=== PATIENT | female | born 1940 | race Caucasian/White ===

== ENCOUNTER 2021-07-12 01:30 | Inpatient (IN) | payer OTHER ==
[~2021-07-12] VITALS: Ht 165.1 cm; Wt 76.9 kg
[2021-07-12 03:06] LABS: HEMATOCRIT. 40.3 % (36.0-48.0); HEMOGLOBIN. 13.2 g/dL (12.0-16.0); MEAN CORPUSCULAR HEMOGLOBIN 31.2 pg (28.0-32.0); MEAN PLATELET VOLUME 7.7 fl (7.4-10.4); PLATELET 221 x1000/uL (130-400); RED BLOOD CELL COUNT 4.24 mill/uL (4.2-5.4); RED CELL DISTRIBUTION WIDTH 14.3 % (11.6-14.6)
[2021-07-12 03:20] LABS: CHLORIDE 101 mEq/L (98-107)
[2021-07-12 03:25] LABS: ETHANOL BLOOD < 10 mg/dL
[2021-07-12 05:09] LABS: CLARITY URINE CLEAR (CLEAR); COLOR URINE YELLOW (YELLOW); KETONES URINE 2+ (NEGATIVE); LEUKOCYTE ESTERASE URINE NEGATIVE (NEGATIVE); NITRITE URINE NEGATIVE (NEGATIVE); OCCULT BLOOD URINE TRACE (NEGATIVE); PROTEIN URINE 1+ (NEGATIVE); SPECIFIC GRAVITY URINE 1.015 (1.005-1.030); UROBILINOGEN URINE 0.2 E.U./dL (0.2-1.0)
[2021-07-12 05:28] LABS: PLATELET ESTIMATE NORMAL
[2021-07-12] MEDS ORDERED: ACETAMINOPHEN 325MG TABLET PO ONE (05:45)
[2021-07-12] MEDS ORDERED: LORAZEPAM 0.5MG TABLET PO PRN (10:30)
[2021-07-12] MEDS ORDERED: CLONIDINE 0.1MG TABLET PO PRN (10:30)
[2021-07-12] MEDS ORDERED: GUAIFENESIN 200MG/10ML SUGAR FREE UDC PO PRN (10:30)
[2021-07-12] MEDS ORDERED: DIPHENHYDRAMINE 50MG/ML VIAL IV PRN (10:30)
[2021-07-12] MEDS ORDERED: CEFTRIAXONE 1 G PREMIX 50 ML IV SCH (10:30)
[2021-07-12] MEDS ORDERED: NA PHOS,M-B/NA PHOS,DI-BA ENEMA 118ML PR PRN (10:30)
[2021-07-12] MEDS ORDERED: IPRATROPIUM/ALBUTEROL 0.5-3(2.5)MG/3ML NEB NEB PRN (10:30)
[2021-07-12] MEDS ORDERED: ONDANSETRON HCL 4MG/2ML INJ IV PRN (10:30)
[2021-07-12] MEDS ORDERED: MAGNESIUM/ALUMINUM HYDROXIDE/SIMETHICONE 30ML UDC PO PRN (10:30)
[2021-07-12] MEDS ORDERED: ACETAMINOPHEN 650MG SUPP PR PRN (10:30)
[2021-07-12] MEDS ORDERED: DOCUSATE SODIUM 100MG CAPSULE PO PRN (10:30)
[2021-07-12] MEDS ORDERED: ACETAMINOPHEN 325MG TABLET PO PRN (10:30)
[2021-07-12] MEDS ORDERED: POTASSIUM CHLORIDE INJ 40 MEQ in DEXT 5% WATER 250 ML IV NR (11:15)
[2021-07-12] MEDS: SODIUM CHLORIDE 0.45% 1,000 ML IV SCH (11:22)
[2021-07-12 11:55] LABS: PROTHROMBIN TIME 10.7 sec (9.6-11.0)
[2021-07-12] MEDS ORDERED: LEVOFLOXACIN 500MG PREMIX 100ML IV ONE (15:00)
[2021-07-12 15:09] LABS: *AMPHETAMINES SCREEN URINE NEGATIVE (NEGATIVE); *BARBITURATES SCREEN URINE NEGATIVE (NEGATIVE); *BENZODIAZEPINES SCREEN URINE NEGATIVE (NEGATIVE); *COCAINE SCREEN URINE NEGATIVE (NEGATIVE); CANNABINOID URINE SCREEN NEGATIVE (NEGATIVE); METHADONE URINE SCREEN NEGATIVE (NEGATIVE); OPIATES URINE SCREEN NEGATIVE (NEGATIVE); PHENCYCLIDINE URINE SCREEN NEGATIVE (NEGATIVE)
[2021-07-12] MEDS: LEVETIRACETAM 500MG PREMIX 100 ML IV SCH ×2 (16:07→21:18)
[2021-07-12] MEDS: ENOXAPARIN 30MG/0.3ML SYR SUBCUT SCH (16:46)
[2021-07-12] MEDS ORDERED: NALOXONE HCL 0.4MG/ML VIAL IV PRN (17:00)
[2021-07-12] MEDS: FAMOTIDINE 20MG TABLET PO SCH (21:18)
[2021-07-13 05:00] LABS: BASOPHILS % 0.6 % (0.0-2.0); EOSINOPHILS % 0.6 % (0.0-5.0); HEMATOCRIT. 38.2 % (36.0-48.0); HEMOGLOBIN. 12.6 g/dL (12.0-16.0); LYMPHOCYTES % 16.6 % (20.0-50.0); MEAN CORPUSCULAR HEMOGLOBIN 30.8 pg (28.0-32.0); MEAN CORPUSCULAR VOLUME 93.1 fL (81.0-99.0); MEAN PLATELET VOLUME 7.6 fl (7.4-10.4); MONOCYTES % 9.2 % (2.0-8.0); PLATELET 241 x1000/uL (130-400); RED BLOOD CELL COUNT 4.11 mill/uL (4.2-5.4); RED CELL DISTRIBUTION WIDTH 14.4 % (11.6-14.6)
[2021-07-13 05:21] LABS: CHLORIDE 102 mEq/L (98-107)
[2021-07-13 05:33] LABS: T4 FREE 1.03 ng/dL (0.76-1.46)
[2021-07-13] MEDS: SODIUM CHLORIDE 0.45% 1,000 ML IV SCH (07:09)
[2021-07-13 09:20] VITALS: BP 102/64
[2021-07-13] MEDS ORDERED: LEVOFLOXACIN 250MG PREMIX 50 ML IV SCH ×2 (11:30→15:00)
[2021-07-13 12:00] VITALS: BP 143/53
[2021-07-13] MEDS: ASPIRIN 81MG EC TABLET PO SCH (13:12)
[2021-07-13] MEDS: LEVETIRACETAM 500MG PREMIX 100 ML IV SCH ×2 (13:12→21:33)
[2021-07-13 13:43] VITALS: BP 102/64
[2021-07-13] MEDS: LEVOFLOXACIN 250MG PREMIX 50 ML IV SCH (14:28)
[2021-07-13] MEDS ORDERED: METO25TA3 PO (14:51)
[2021-07-13] MEDS ORDERED: LEVO25TA7 PO (14:51)
[2021-07-13] MEDS ORDERED: HYDR100T26 PO (14:51)
[2021-07-13] MEDS ORDERED: DIPH25CA83 PO (14:51)
[2021-07-13] MEDS ORDERED: TAMS-11 PO (14:51)
[2021-07-13] MEDS ORDERED: MEMA10TA2 PO (14:51)
[2021-07-13] MEDS ORDERED: DONE10TA36 PO (14:51)
[2021-07-13 16:00] VITALS: BP 133/68
[2021-07-13] MEDS: ENOXAPARIN 30MG/0.3ML SYR SUBCUT SCH (17:11)
[2021-07-13 20:00] VITALS: BP 118/46
[2021-07-13] MEDS: FAMOTIDINE 20MG TABLET PO SCH (20:56)
[2021-07-14] VITALS: BP 114/53
[2021-07-14 04:00] VITALS: BP 136/49
[2021-07-14] MEDS: LEVOTHYROXINE SODIUM 25MCG TABLET PO SCH (06:16)
[2021-07-14 08:00] VITALS: BP 126/44
[2021-07-14] MEDS: ASPIRIN 81MG EC TABLET PO SCH (08:34)
[2021-07-14] MEDS: LEVETIRACETAM 500MG PREMIX 100 ML IV SCH ×2 (08:34→21:47)
[2021-07-14] MEDS: HYDROCODONE/ACETAMINOPHEN 5/325MG TABLET PO PRN ×3 (11:06→22:15)
[2021-07-14 12:00] VITALS: BP 110/56
[2021-07-14 16:00] VITALS: BP 120/68
[2021-07-14] MEDS: LEVOFLOXACIN 250MG PREMIX 50 ML IV SCH (16:57)
[2021-07-14] MEDS: ENOXAPARIN 30MG/0.3ML SYR SUBCUT SCH (16:57)
[2021-07-14] MEDS: SODIUM CHLORIDE 0.45% 1,000 ML IV SCH ×2 (16:58→21:48)
[2021-07-14 20:00] VITALS: BP 109/52
[2021-07-14] MEDS: FAMOTIDINE 20MG TABLET PO SCH (21:47)
[2021-07-15] VITALS: BP 116/48
[2021-07-15 04:00] VITALS: BP 133/49
[2021-07-15] MEDS: LEVOTHYROXINE SODIUM 25MCG TABLET PO SCH (06:31)
[2021-07-15] MEDS: SODIUM CHLORIDE 0.45% 1,000 ML IV SCH ×2 (06:32→16:34)
[2021-07-15 08:00] VITALS: BP 138/55
[2021-07-15] MEDS: ASPIRIN 81MG EC TABLET PO SCH (08:37)
[2021-07-15] MEDS: LEVETIRACETAM 500MG PREMIX 100 ML IV SCH (08:37)
[2021-07-15 12:00] VITALS: BP 134/68
[2021-07-15] MEDS: ENOXAPARIN 30MG/0.3ML SYR SUBCUT SCH (15:11)
[2021-07-15] MEDS: LEVOFLOXACIN 250MG TABLET PO SCH (15:12)
[2021-07-15 16:00] VITALS: BP 121/54
[2021-07-15] MEDS: HYDROCODONE/ACETAMINOPHEN 5/325MG TABLET PO PRN ×2 (16:34→20:53)
[2021-07-15 20:00] VITALS: BP 145/76
[2021-07-15] MEDS: FAMOTIDINE 20MG TABLET PO SCH (20:46)
[2021-07-15] MEDS: LEVETIRACETAM 500MG TABLET PO SCH (20:46)
[2021-07-16] VITALS: BP 139/53
[2021-07-16] MEDS: SODIUM CHLORIDE 0.45% 1,000 ML IV SCH ×3 (03:51→21:46)
[2021-07-16 04:00] VITALS: BP 138/66
[2021-07-16] MEDS: LEVOTHYROXINE SODIUM 25MCG TABLET PO SCH (06:29)
[2021-07-16 08:00] VITALS: BP 114/50
[2021-07-16] MEDS: ASPIRIN 81MG EC TABLET PO SCH (08:48)
[2021-07-16] MEDS: LEVETIRACETAM 500MG TABLET PO SCH ×2 (08:48→21:44)
[2021-07-16 12:00] VITALS: BP 125/62
[2021-07-16] MEDS: LEVOFLOXACIN 250MG TABLET PO SCH (12:09)
[2021-07-16 12:22] LABS: EOSINOPHILS % 0.8 % (0.0-5.0); HEMATOCRIT. 36.6 % (36.0-48.0); HEMOGLOBIN. 12.3 g/dL (12.0-16.0); LYMPHOCYTES % 17.1 % (20.0-50.0); MEAN CORPUSCULAR HEMOGLOBIN 31.1 pg (28.0-32.0); MEAN CORPUSCULAR VOLUME 92.4 fL (81.0-99.0); MEAN PLATELET VOLUME 7.4 fl (7.4-10.4); MONOCYTES % 10.4 % (2.0-8.0); NEUTROPHILS % 70.7 % (40.0-76.0); PLATELET 233 x1000/uL (130-400); RED BLOOD CELL COUNT 3.96 mill/uL (4.2-5.4); RED CELL DISTRIBUTION WIDTH 14.2 % (11.6-14.6)
[2021-07-16] MEDS ORDERED: KEPP500 MT (15:03)
[2021-07-16 16:00] VITALS: BP 158/61
[2021-07-16] MEDS: ENOXAPARIN 30MG/0.3ML SYR SUBCUT SCH (16:04)
[2021-07-16] MEDS: HYDROCODONE/ACETAMINOPHEN 5/325MG TABLET PO PRN (18:20)
[2021-07-16 20:00] VITALS: BP 171/83
[2021-07-16] MEDS: FAMOTIDINE 20MG TABLET PO SCH (21:45)
[2021-07-17] VITALS: BP 148/78
[2021-07-17 04:00] VITALS: BP 132/76
[2021-07-17] MEDS: LEVOTHYROXINE SODIUM 25MCG TABLET PO SCH (05:41)
[2021-07-17 06:38] VITALS: BP 132/76
[2021-07-17 08:00] VITALS: BP 125/69
[2021-07-17] MEDS: ASPIRIN 81MG EC TABLET PO SCH (08:56)
[2021-07-17] MEDS: LEVETIRACETAM 500MG TABLET PO SCH (08:56)
[2021-07-17] MEDS: SODIUM CHLORIDE 0.45% 1,000 ML IV SCH (08:57)
== END 2021-07-17 12:05 | disposition home or self-care (01) | DRG 70 ==
LOC: ER 01:57 → SUPCPDRO 13:29 → MICUSO 07-13 00:48 → 8WST 07-13 10:51
PROVIDERS: ADMIT Internal Medicine; ATTEND Internal Medicine
PROC: 4A10X4Z Monitoring of Central Nervous Electrical Activity, External Approach (ICD-10-PCS; principal; 2021-07-14)
DX: G93.41 Metabolic encephalopathy (principal); N17.0 Acute kidney failure with tubular necrosis; D68.9 Coagulation defect, unspecified; G90.9 Disorder of the autonomic nervous system, unspecified; D32.9 Benign neoplasm of meninges, unspecified; E03.9 Hypothyroidism, unspecified; E87.6 Hypokalemia; R94.6 Abnormal results of thyroid function studies; F03.90 Unspecified dementia, unspecified severity, without behavioral disturbance, psychotic disturbance, mood disturbance, and anxiety; D32.0 Benign neoplasm of cerebral meninges; Z20.822 Contact with and (suspected) exposure to COVID-19; R32 Unspecified urinary incontinence; I12.9 Hypertensive chronic kidney disease with stage 1 through stage 4 chronic kidney disease, or unspecified chronic kidney disease; N18.9 Chronic kidney disease, unspecified; E05.90 Thyrotoxicosis, unspecified without thyrotoxic crisis or storm; R73.9 Hyperglycemia, unspecified; Z88.0 Allergy status to penicillin; Z79.899 Other long term (current) drug therapy
CPT/HCPCS: 36415; 70551; 71045; 80048; 80053; 80305; 80307; 80320; 80329; 81003; 82140; 83036; 83880; 84439; 84443; 84481; 84484; 85025; 87426; 93005; 93306; 93880; 93970; 95816; 97162; 99285; C1893; J1650; J1953; J1956; J3480; J7040; J7060; G0480